=== PATIENT | female | born 1990 | race Caucasian/White ===

== ENCOUNTER 2020-01-20 10:38 | Emergency (ER) | payer OTHER ==
[~2020-01-20] VITALS: Ht 167.6 cm; Wt 72.7 kg
[2020-01-20 10:54] VITALS: BP 99/65
--- NOTE | 2020-01-20 11:18 | RAD ---
EXAM: Left ankle, 3 views; left foot, 3 views. HISTORY: Trauma. COMPARISON: None. FINDINGS: 3 views of the left foot and ankle are obtained. There is a tiny avulsion fracture fragment inferior to the lateral malleolus, of uncertain chronicity. There is also a tiny avulsion fracture fragment lateral to the anterior calcaneus of uncertain chronicity. Given overlying soft tissue swelling, these may be acute in etiology. The ankle mortise is intact. There is no osteochondral lesion. IMPRESSION: Tiny avulsion fracture fragments inferior to the lateral malleolus and lateral to the anterior calcaneus, of uncertain chronicity. Given overlying soft tissue swelling, these may be acute. Correlate for pain in these locations. Electronically signed by: Jasmine Bauer MD (01/20/2020 11:15 AM) [facility]
--- NOTE | 2020-01-20 11:25 | PHYS DOC ---
Past History Past Medical History: No Pertinent History Past Surgical History: Other Additional Past Surgical Histo: ASD correction Alcohol Use: None General Adult EDM: Chief Complaint: ANKLE PROBLEM HPI: HPI: 29-year-old female presents with left lateral ankle pain. The patient stepped down off of something and did not see a drainage ditch where she was stepping. She rolled her ankle medially. She heard popping and cracking. She was able to walk on it but it is painful. It is significantly swollen this morning so she came in for evaluation. She is still able to walk. She denies any other injuries at this time. Review of Systems: Review of Systems: Constitutional: Denies fever or chills Eyes: Denies change in visual acuity HENT: Denies nasal congestion or sore throat Respiratory: Denies cough or shortness of breath Cardiovascular: Denies chest pain or edema GI: Denies abdominal pain, nausea, vomiting, bloody stools or diarrhea : Denies dysuria Musculoskeletal: Left lateral ankle pain Integument: Denies rash Neurologic: Denies headache, focal weakness or sensory changes Endocrine: Denies polyuria or polydipsia Lymphatic: Denies swollen glands Psychiatric: Denies depression or anxiety Heart Score: Risk Factors: Risk Factors: DM, Current or recent (<one month) smoker, HTN, HLP, family history of CAD, obesity. Risk Scores: Score 0 - 3: 2.5% MACE over next 6 weeks - Discharge Home Score 4 - 6: 20.3% MACE over next 6 weeks - Admit for Clinical Observation Score 7 - 10: 72.7% MACE over next 6 weeks - Early Invasive Strategies Allergies: Allergies: Allergies Coded Allergies Type Severity Reaction Last Updated Verified No Known Drug Allergies 01/20/20 No Physical Exam: PE: Constitutional: Well developed, well nourished, no acute distress, non-toxic appearance. [] HENT: Normocephalic, atraumatic, bilateral external ears normal, oropharynx moist, no oral exudates, nose normal. [] Eyes: PERRLA, EOMI, conjunctiva normal, no discharge. [] Neck: Normal range of motion, no tenderness, supple, no stridor. [] Cardiovascular:Heart rate regular rhythm, no murmur [] Lungs & Thorax: Bilateral breath sounds clear to auscultation [] Abdomen: Bowel sounds normal, soft, no tenderness, no masses, no pulsatile masses. [] Skin: Warm, dry, no erythema, no rash. [] Back: No tenderness, no CVA tenderness. [] Extremities: Severe swelling of the left lateral ankle, tenderness to palpation. [] Neurologic: Alert and oriented X 3, normal motor function, normal sensory function, no focal deficits noted. [] Psychologic: Affect normal, judgement normal, mood normal. [] Current Patient Data: Vital Signs: Vital Signs Date Time Temp Pulse Resp B/P (MAP) Pulse Ox O2 Delivery O2 Flow Rate FiO2 01/20/20 10:54 97.9 90 18 99/65 (76) 97 EKG: EKG: [] Radiology/Procedures: Radiology/Procedures: [] Impressions: EXAM: Left ankle, 3 views; left foot, 3 views. HISTORY: Trauma. COMPARISON: None. FINDINGS: 3 views of the left foot and ankle are obtained. There is a tiny avulsion fracture fragment inferior to the lateral malleolus, of uncertain chronicity. There is also a tiny avulsion fracture fragment lateral to the anterior calcaneus of uncertain chronicity. Given overlying soft tissue swelling, these may be acute in etiology. The ankle mortise is intact. There is no osteochondral lesion. IMPRESSION: Tiny avulsion fracture fragments inferior to the lateral malleolus and lateral to the anterior calcaneus, of uncertain chronicity. Given overlying soft tissue swelling, these may be acute. Correlate for pain in these locations. Electronically signed by: Jasmine Bauer MD (01/20/2020 11:15 AM) [facility] DICTATED AND SIGNED BY: JASMINE BAUER MD DATE: 01/20/20 1115 CC: LAMAR NANCE DO; PCP,NO ~ Course & Med Decision Making: Course & Med Decision Making Pertinent Labs and Imaging studies reviewed. (See chart for details) The patient has a moderate ankle sprain. According to x-ray she has some small avulsion fractures of unknown chronicity. See official report for details. We will place her in an air splint. She is stable for discharge at this time. [] Dragon Disclaimer: Dragon Disclaimer: This electronic medical record was generated, in whole or in part, using a voice recognition dictation system. Departure Departure: Impression: Primary Impression: Moderate left ankle sprain Qualified Codes: S93.402A - Sprain of unspecified ligament of left ankle, initial encounter Disposition: 01 DC HOME SELF CARE/HOMELESS Condition: STABLE Referrals: PCPJOSE (PCP) Patient Instructions: Ankle Sprain, Acute, with Phase I Rehab-SportsMed LAMAR NANCE DO Jan 20, 2020 11:25
== END 2020-01-20 11:37 | disposition home or self-care (01) ==
LOC: ER 10:38
DX: S93.402A Sprain of unspecified ligament of left ankle, initial encounter (principal); W22.8XXA Striking against or struck by other objects, initial encounter; Y93.89 Activity, other specified; Y92.89 Other specified places as the place of occurrence of the external cause; Y99.8 Other external cause status
CPT/HCPCS: 73610; 73630; 99284; L4350